=== PATIENT | female | born 1975 | race African-American/Black ===

== ENCOUNTER 2020-12-14 17:59 | Emergency (ER) | payer SELFPAY ==
[~2020-12-14] VITALS: Ht 165.1 cm; Wt 73.0 kg
[2020-12-14 18:01] VITALS: BP 135/85
== END 2020-12-14 18:44 | disposition left against medical advice (07) ==
LOC: ER 17:59
DX: F91.8 Other conduct disorders (principal); I10 Essential (primary) hypertension; Z88.5 Allergy status to narcotic agent; Z88.8 Allergy status to other drugs, medicaments and biological substances
CPT/HCPCS: 99283